=== PATIENT | female | born 1995 | race Two or more races ===

== ENCOUNTER 2016-10-21 11:25 | Inpatient (IN) | payer OTHER ==
[~2016-10-21] VITALS: Ht 160 cm; Wt 89.8 kg
[2016-10-21] MEDS ORDERED: CLINTAB7 (12:17)
[2016-10-21 12:25] LABS: BASOPHIL % 0.2 % (0.0-2.0); EOSINOPHIL # 0.1 TH/MM3 (0-0.4); EOSINOPHIL % 0.7 % (0.0-4.0); HEMO FLAGS DIFF FINAL; LYMPH % 25.2 % (9.0-44.0); LYMPHOCYTE # 2.7 TH/MM3 (1.0-4.8); MEAN CELL VOLUME 83.7 FL (80.0-100.0); MEAN CORPUSCULAR HEMOGLOBIN 27.5 PG (27.0-34.0); MEAN CORPUSCULAR HGB CONC 32.8 % (32.0-36.0); MONO % 7.5 % (0.0-8.0); NEUT % 66.4 % (16.0-70.0); PLATELET COUNT 236 TH/MM3 (150-450); RED BLOOD COUNT 4.42 MIL/MM3 (4.00-5.30); RED CELL DISTRIBUTION WIDTH 15.5 % (11.6-17.2); WHITE BLOOD COUNT 10.5 TH/MM3 (4.0-11.0)
[2016-10-21 12:35] LABS: BLOOD, URINE NEG (NEG); GLUCOSE,URINE NEG (NEG); KETONE, URINE NEG (NEG); MUCUS URINE FEW /lpf (OCC); NITRITE,URINE NEG (NEG); SQUAMOUS EPITHELIAL CELL URINE 5 /hpf (0-5); URINE COLOR YELLOW (YELLW/STRAW)
[2016-10-21 12:38] LABS: COMMENT (UR) CULT NOT INDICATED; CULTURE IF INDICATED CULT NOT INDICATED
[2016-10-21] MEDS ORDERED: SODIUM CHLORIDE 5 ML FLUSH PRN IVF (12:45)
[2016-10-21] MEDS ORDERED: MINERAL OIL 10 ML VIAL TOP PRN (12:45)
[2016-10-21] MEDS ORDERED: MISOPROSTOL 25 MCG SUPP VAGINAL ONE ×2 (12:45→17:30)
[2016-10-21] MEDS ORDERED: ONDANSETRON HCL 4 MG/2 ML VIAL IV PRN (12:45)
[2016-10-21] MEDS ORDERED: LIDOCAINE HCL 1% 50 ML VIAL I-DERMAL PRN (12:45)
[2016-10-21] MEDS ORDERED: CITRIC ACID-SODIUM CITRATE LIQ 30 ML UDC PO SCH (12:45)
[2016-10-21] MEDS ORDERED: NS 1000 ML IV PRN (12:45)
[2016-10-21] MEDS ORDERED: LACTATED RINGER'S 1000 ML INJ 1,000 ML IV SCH ×2 (12:45→22:00)
[2016-10-21] MEDS ORDERED: LIDOCAINE HCL 1% 50 ML VIAL INFIL PRN (12:45)
[2016-10-21] MEDS ORDERED: NS 500 ML BOLUS IV PRN (12:45)
[2016-10-21] MEDS ORDERED: OXYTOCIN 30 UNITS 500ML PREMIX IV ONE (12:45)
[2016-10-21] MEDS ORDERED: LACTATED RINGER'S 1000 ML BOLUS IV PRN (12:45)
[2016-10-21] MEDS: LACTATED RINGER'S 1000 ML IV SCH (12:52)
--- NOTE | 2016-10-21 14:19 | MH ---
cc: ANNE TALAMANTES MD DATE OF ADMISSION: 10/21/2016 HISTORY OF PRESENT ILLNESS She is a 21-year-old, 1, para 0, intrauterine at 41 and 1/7 weeks with oligohydramnios. care has been with [facility], uncomplicated. Group B strep is negative. OBSTETRICAL HISTORY She is primigravid. GYNECOLOGIC HISTORY Her Pap smear was normal in February of 2016. PAST MEDICAL AND SURGICAL HISTORY She denies. She denies any toxic habits. MEDICATIONS She takes vitamins. ALLERGIES No known drug allergies. PHYSICAL EXAMINATION VITAL SIGNS: Her vital signs are stable. She is afebrile. Blood pressure is 110/72. She is 198 pounds. HEAD, HEART, CHEST, LUNGS: Exams are within normal limits. ABDOMEN: Abdomen is soft, nontender, gravid. heart rate was 149 and KELLEY was 4 cm. ASSESSMENT/PLAN She is a 21-year-old, 1, para 0, intrauterine at 41 and 1/7 weeks with oligohydramnios. She has been counseled as to the risks, benefits, alternatives of Cytotec induction. All of her questions have been answered and informed consents have been signed. MD JOSE Fleming/TLL /1:59 PM /2:11 PM
[2016-10-21 17:27] VITALS: BP 133/70; PULSE 73; RESP 18; TEMP 98.6
[2016-10-21 19:14] VITALS: BP 126/74; PULSE 71; RESP 18; TEMP 98
[2016-10-21] MEDS: SODIUM CHLORIDE 5 ML FLUSH BID IVF SCH (21:00)
[2016-10-21 21:46] VITALS: BP 114/69; PULSE 73
[2016-10-21 22:00] VITALS: RESP 18; TEMP 98.2
[2016-10-21] MEDS ORDERED: DINOPROSTONE 10 MG INSERT-LEAVE FOR 12 HOURS VAGINAL ONE (22:00)
[2016-10-21] MEDS ORDERED: NS 1000 ML XX PRN (22:00)
[2016-10-21 23:54] VITALS: BP 121/72; PULSE 67
[2016-10-22] VITALS (17 sets, daily range): BP systolic 114–140; BP diastolic 63–106; PULSE 64–95; RESP 16–18; TEMP 97.6–98.6; O2SAT 97–98
--- NOTE | 2016-10-22 08:19 | PD.LABORPN ---
Subjective Subjective feeling pressure and contractions but mild, 1/10 Objective Objective Pelvic Exam: Cervix: [posterior] Dilatation: [2] Effacement: [50] Station: [-3] Presentation: [vtx] Membranes: [intact] Uterine Contractions: [not picking up well on monitor] FHT's: Category: [I] Assessment/Plan Problem List: (1) Post term at 41 weeks gestation Assessment and Plan 21 yo G1 at 41w2d admit for post term IOL, oligo 1) IOL: s/p cytotec x 2 yesterday and cervidil overnight; minimal to no cervical change; start pitocin, d/w pt suspect CPD based on high station, possibility of ; pt aware and amenable 2) GBS neg 3) status: vtx, male, Cat I tracing Niharika Beltran MD Oct 22, 2016 08:19
[2016-10-22] MEDS ORDERED: OXYTOCIN 30 UNITS-500ML PREMIX 500 ML IV SCH (08:30)
[2016-10-22] MEDS: SODIUM CHLORIDE 5 ML FLUSH BID IVF SCH (09:00)
[2016-10-22] MEDS ORDERED: OXYTOCIN 10 UNIT/ML AMP ONE (11:21)
[2016-10-22] MEDS ORDERED: ceFAZolin INJ 1,000 MG VIAL ONE (11:33)
[2016-10-22] MEDS: LACTATED RINGER'S 1000 ML IV SCH (11:38)
[2016-10-22] MEDS ORDERED: LACTATED RINGER'S 1000 ML INJ 1,000 ML IV ONE (11:39)
--- NOTE | 2016-10-22 11:39 | HHI.PR ---
[employer] Note Note Update: called by L&D nurse, report of Cat II tracing with pitocin augmentation, intolerance of labor; pitocin stopped, no cervical change, d/w pt and FOB intolerance of labor, proceed with . Niharika Beltran MD Oct 22, 2016 11:39
[2016-10-22] MEDS ORDERED: PERC5TAB12 PO (11:41)
[2016-10-22] MEDS ORDERED: IBUP-232 PO (11:41)
[2016-10-22] MEDS ORDERED: PERI8.6T PO (11:41)
[2016-10-22] MEDS ORDERED: LACTATED RINGER'S 1000 ML INJ 1,000 ML IV SCH ×2 (12:09→17:42)
[2016-10-22] MEDS ORDERED: KETOROLAC TROMETHAMINE 60 MG/2 ML (IM) VIAL IM PRN (12:45)
[2016-10-22] MEDS ORDERED: ONDANSETRON HCL 4 MG/2 ML VIAL IV PUSH PRN (12:45)
[2016-10-22] MEDS ORDERED: SIMETHICONE 80 MG CHEWABLE TAB PO PRN (12:45)
[2016-10-22] MEDS ORDERED: SODIUM CHLORIDE 0.9% FLUSH 5 ML FLUSH IV PRN (12:45)
[2016-10-22] MEDS ORDERED: ACETAMINOPHEN 325 MG TAB PO PRN (12:45)
[2016-10-22] MEDS: SODIUM CHLORIDE 0.9% FLUSH 5 ML FLUSH IV SCH ×2 (12:45→20:00)
[2016-10-22] MEDS ORDERED: ACETAMINOPHEN 1000 MG/100 ML VIAL IV ONE ×2 (12:45→13:38)
[2016-10-22] MEDS ORDERED: ZOLPIDEM TARTRATE 5 MG TAB PO PRN (12:45)
[2016-10-22] MEDS ORDERED: ceFAZolin 2 GM PREMIX 50 ML IV SCH (12:45)
[2016-10-22] MEDS ORDERED: OXYTOCIN 30 UNITS-500ML PREMIX 500 ML IV ONE (12:45)
--- NOTE | 2016-10-22 12:46 | PD.OB.DELI ---
Procedure Note Section Procedure Pre Op Diagnosis: (1) Post term at 41 weeks gestation (2) intolerance to labor, delivered, current hospitalization Post Op Diagnosis: (1) S/P primary low transverse (2) Post term at 41 weeks gestation (3) intolerance to labor, delivered, current hospitalization Performed by Niharika Beltran Procedure: Primary Low Transverse Sec Indication for delivery: Nonreassuring heart tracing ( intolerance of labor, NRFHTs with pitocin) Informed consent obtained: For anesthesia, For procedure Confirmed correct: Patient, Procedure, Site, Time-out taken Anesthesia: Spinal Medication prior to procedure: As documented in eMAR Monitoring during procedure: Blood pressure monitoring, roof assembler, Pulse oximetry Urinary catheter: Inserted using sterile technique, To dependent drainage, ml urine output (200) Sterile preparation: Duraprep, In usual fashion, With drapes to expose affected area Position: Supine with wedge to right side Operative Features Skin Incision: Pfannenstiel Uterine Incision: Low transverse w/knife / scissors Membranes Ruptured: Artificially, Amount of liquid (scant), Appearance of fluid (thick meconium) Presentation: Vertex Delivery of infant: Umbilical cord (tight nuchal x 1, reduced at delivery of head) : Male One Minute : 7 Ten Minute : 9 Weight: 7#1oz Status of : Viable, Nursery present Placenta delivered: Intact Medications: Antibiotics (preop Ancef 2g IV) Estimated blood loss: 500 mL Procedure tolerated: Well Maternal Condition: Stable Condition: Stable (nursery status) Procedure in detail see dictated op note for full details Niharika Beltran MD Oct 22, 2016 12:46
[2016-10-22] MEDS ORDERED: ONDANSETRON HCL 4 MG/2 ML VIAL ONE (12:48)
[2016-10-22] MEDS ORDERED: MORPHINE SULFATE PF 5 MG/10 ML VIAL ONE (12:48)
--- NOTE | 2016-10-22 12:52 | HHI.DCPOC ---
Discharge Care Plan Diagnosis: (1) S/P primary low transverse Your Health Problems Are: delivery Report Symptoms to Your Doctor -Temperate above 100.5 degrees -Redness, of incision or excessive or foul smelling drainage -Unusual pain or calf pain -Increased vaginal bleeding -Painful or difficulty urinating -Feelings of extreme sadness or anxiety after 2 weeks Goals to Promote Your Health * To prevent worsening of your condition and complications * To maintain your health at the optimal level Directions to Meet Your Goals Take your medications as prescribed Follow your dietary instruction Follow activity as directed Ensure plenty of rest for recovery Drink fluids for hydration Keep your appointments as scheduled Take your immunizations and boosters as scheduled If your symptoms worsen call your PCP, if no PCP go to Urgent Care Center or Emergency Room Smoking is Dangerous to Your Health. Avoid second hand smoke Call the 24-hour crisis hotline for domestic abuse at Niharika Beltran MD Oct 22, 2016 12:52
--- NOTE | 2016-10-22 13:31 | MP ---
cc: CODY MARTINEZ M.D. DATE OF SURGERY: 10/22/2016 DATE OF : 1995 PREOPERATIVE DIAGNOSIS 1. Intrauterine arthur at 41 weeks and 2 days. 2. Oligohydramnios. 3. intolerance of labor, non-reassuring heart tones. POSTOPERATIVE DIAGNOSIS 1. Intrauterine arthur at 41 weeks and 2 days. 2. Oligohydramnios. 3. intolerance of labor, non-reassuring heart tones. 4. Post-op day #0. INDICATIONS Vesna Hernandez is a 21-year-old, 2, now para 1-0-1-1 who was seen and evaluated throughout her with [facility] with an uncomplicated course. At 41 weeks and 1 day she had standard testing and was found to have oligohydramnios with KELLEY of 4. The patient was sent for induction to labor and delivery. She had two doses of Cytotec followed by Cervidil. Still the patient's cervix remained 1, thick and high posterior. Pitocin was started in general manager oracle data cloud hours on October 22 with heart tones quickly changing from category I to category II, not responding to interventions. intolerance of labor diagnosed and decision for . PROCEDURE PERFORMED Primary low transverse delivery. SURGEON Cody Martinez MD ANESTHESIA Spinal. ESTIMATED BLOOD LOSS 500 mL. URINE OUTPUT 200 mL of clear urine draining in the Ford bag at the end of the procedure. IV FLUID REPLACEMENT One liter. PROPHYLAXIS Ancef 2 grams IV was given preoperatively. SCDs were on and functioning throughout the entire case. INTRAOPERATIVE FINDINGS A vigorous and viable male , weighing 7 pounds 1 ounce. A tight nuchal cord was reduced after delivery of the head. Thick meconium staining to the amniotic fluid. Apgars of 7 and 9. Placenta was intact, meconium-stained. Uterus was not exteriorized so adnexa were not evaluated. SPECIMEN None. PROCEDURE IN DETAIL After reviewing the informed consent, the patient was taken to the operating suite where a timeout was performed to identify the patient, planned procedure and any known allergies to drugs or drug products. The patient was then placed sitting up on the operating table and spinal anesthesia was administered without difficulty and found to be adequate. The patient was then laid supine with a bump under her right side and the abdomen and perineum were prepped and draped in normal sterile fashion. A Ford catheter was placed using sterile technique. Attention was turned abdominally where a Pfannenstiel-type skin incision was made with a scalpel and carried down to the underlying layer of fascia with the Bovie. The fascia was incised in the midline. The incision was extended laterally with sharp dissection using Menendez scissors. The superior aspect of the fascial incision was elevated with Sam clamps. The rectus muscles were dissected off sharply with Menendez scissors. That process was repeated inferiorly. The rectus muscle was then in the midline. The peritoneum was identified, elevated with hemostats and entered sharply with Metzenbaum scissors. The peritoneal opening was then extended superiorly and inferiorly with good visualization of intra-abdominal contents. A bladder blade was placed. A bladder flap was not made. A low transverse incision was made on the uterus with a scalpel and extended sharply with bandage scissors. Immediately upon amniotomy thick particulate meconium was noted. The infant's head was grasped and flexed out of the incision. A tight nuchal cord was encountered, this was reduced. The was then delivered using standard maneuvers. The cord was doubly clamped and cut and the infant was immediately handed to the awaiting nursery and respiratory staff. Cord blood sample was taken. Placenta was delivered spontaneously using gentle cord traction and fundal massage. The uterus was not exteriorized. The uterus was cleared of all clots and debris with sterile moist lap sponges. The hysterotomy was repaired in a double layer, first in a running layer and then in an imbricating layer with #1 chromic. The pelvis was then irrigated and excellent hemostasis was noted. The peritoneum was then closed in a running fashion with 2-0 chromic. The fascia was closed in a running layer with #1 Vicryl. The subcutaneous tissue was irrigated copiously with warm sterile saline and hemostasis was ensured with the Bovie. The skin was then closed in a subcuticular fashion with 3-0 Monocryl with excellent hemostasis noted. A standard dressing was placed. The procedure concluded at this point. The patient tolerated the procedure well without complication. DISPOSITION The patient's estimated length of stay is 2-3 postoperative days. The infant is nursery status. MD RIZWANA Harris /12:49 PM /1:13 PM [id number]
[2016-10-22] MEDS ORDERED: EPIDURAL-DIPHENHYDRAMINE HCL 50 MG/ML VIAL IV PUSH PRN (15:15)
[2016-10-22] MEDS ORDERED: EPIDURAL-DIPHENHYDRAMINE HCL 50 MG CAP PO PRN (15:15)
[2016-10-22] MEDS ORDERED: EPIDURAL-DO NOT ADMINISTER ANTICOAGULANTS XX PRN (15:15)
[2016-10-22] MEDS ORDERED: EPIDURAL-NALOXONE HCL 0.4 MG/ML AMP IV PRN (15:15)
[2016-10-22] MEDS ORDERED: EPIDURAL-NO SYSTEMIC NARCOTICS XX PRN (15:15)
[2016-10-22] MEDS: DOCUSATE SODIUM 50 MG/SENNA 8.6 MG TAB PO SCH (22:14)
[2016-10-22] MEDS ORDERED: OXYTOCIN 30 UNITS-500ML PREMIX 500 ML IV PRN (22:45)
[2016-10-23] MEDS: IBUPROFEN 600 MG TAB PO PRN ×4 (00:49→21:32)
[2016-10-23 04:34] LABS: AUTOMATED NEUTROPHIL # 7.3 TH/MM3 (1.8-7.7); BASOPHIL % 0.2 % (0.0-2.0); EOSINOPHIL # 0.1 TH/MM3 (0-0.4); HEMO FLAGS DIFF FINAL; LYMPHOCYTE # 2.4 TH/MM3 (1.0-4.8); MEAN CELL VOLUME 82.5 FL (80.0-100.0); MEAN CORPUSCULAR HEMOGLOBIN 27.2 PG (27.0-34.0); MONO % 6.2 % (0.0-8.0); NEUT % 69.6 % (16.0-70.0); PLATELET COUNT 194 TH/MM3 (150-450); RED BLOOD COUNT 3.87 MIL/MM3 (4.00-5.30); RED CELL DISTRIBUTION WIDTH 15.7 % (11.6-17.2); WHITE BLOOD COUNT 10.4 TH/MM3 (4.0-11.0)
[2016-10-23 07:28] VITALS: BP 112/60; PULSE 78; RESP 16; TEMP 98.1
[2016-10-23] MEDS: DOCUSATE SODIUM 50 MG/SENNA 8.6 MG TAB PO SCH ×2 (08:12→21:32)
[2016-10-23] MEDS: SODIUM CHLORIDE 0.9% FLUSH 5 ML FLUSH IV SCH (09:00)
--- NOTE | 2016-10-23 10:49 | HHI.OB ---
Subjective Post Operative Day: 1 Remarks POD#1; Doing well, transitioning ok,needs consultation Objective Vitals/I&O Vital Signs Date Time Temp Pulse Resp B/P Pulse Ox O2 Delivery O2 Flow Rate FiO2 10/23/16 07:28 98.1 10/23/16 07:28 78 16 112/60 10/22/16 23:00 98.0 82 18 122/69 10/22/16 23:00 95 114/66 10/22/16 14:28 98.6 16 98 10/22/16 14:28 68 128/78 10/22/16 13:06 64 18 120/67 98 10/22/16 12:51 118/63 10/22/16 12:51 98.0 65 18 97 10/22/16 11:36 75 140/97 10/22/16 11:30 70 129/106 Result Diagram: 10/23/16 0420 Objective Remarks GENERAL: Well-nourished, well-developed patient. CARDIOVASCULAR: Regular rate and rhythm without murmurs, gallops, or rubs. RESPIRATORY: Breath sounds equal bilaterally. No accessory muscle use. ABDOMEN/GI: Abdomen soft, non-tender, bowel sounds present. Incision: Clean, dry and intact. Fundus: Firm, non-tender at umbilicus. GENITOURINARY: Light to moderate bleeding. EXTREMITIES: No cyanosis or edema, non-tender, without signs of DVT. Medications and IVs Current Medications Medications (Trade) Dose Ordered Sig/Chepe Route Start Time Stop Time Status Last Admin (Lr 1000 ml Inj) 1,000 ml @ 100 mls/hr Q10H IV 10/22/16 17:42 10/23/16 13:41 10/22/16 20:15 (NS Flush) 2 ml BID IV 10/22/16 12:45 10/22/16 20:00 (NS Flush) 2 ml UNSCH PRN IV 10/22/16 12:45 (Mylicon Chew) 80 mg QID PRN PO 10/22/16 12:45 (Tylenol) 650 mg Q6H PRN PO 10/22/16 12:45 (Motrin) 600 mg Q6H PRN PO 10/22/16 12:45 10/23/16 08:12 (Toradol Inj) 30 mg Q6H PRN IM 10/22/16 12:45 10/23/16 12:44 (Percocet 5-325 Mg) 1 tab Q4H PRN PO 10/22/16 12:45 (Percocet 5-325 Mg) 2 tab Q4H PRN PO 10/22/16 12:45 (Maki-Colace) 2 tab Q12H PO 10/22/16 21:00 10/23/16 08:12 (Ambien) 5 mg HS PRN PO 10/22/16 12:45 (M-M-R Ii Inj) 0.5 ml ONCE ONCE SQ 10/23/16 16:00 10/23/16 16:01 (Boostrix Inj) 0.5 ml ONCE ONCE IM 10/23/16 16:00 10/23/16 16:01 (Zofran Inj) 4 mg Q6H PRN IV PUSH 10/22/16 12:45 10/22/16 20:12 Miscellaneous Information NO SYSTEMIC NARCOTICS TO BE GIVEN FO... UNSCH PRN XX 10/22/16 15:15 10/23/16 15:14 (Narcan Inj) 0.4 mg UNSCH PRN IV 10/22/16 15:15 10/23/16 15:14 (Benadryl Inj) 25 mg Q6H PRN IV PUSH 10/22/16 15:15 10/23/16 15:14 (Benadryl) 50 mg Q6H PRN PO 10/22/16 15:15 10/23/16 15:14 Miscellaneous Information ALL NURSING DEPARTMENTS UNSCH PRN XX 10/22/16 15:15 10/23/16 15:14 Assessment/Plan Problem List: (1) Post term at 41 weeks gestation Assessment and Plan POD#1, stable, male in NICU Discharge Planning does not meet criteria Moise Villatoro MD Oct 23, 2016 10:49
[2016-10-23 15:01] VITALS: BP 118/68; PULSE 87; RESP 18; TEMP 98.5
[2016-10-23] MEDS ORDERED: MEASLES, MUMPS, RUBELLA VACCINE 0.5 ML VIAL SQ ONE (16:00)
[2016-10-23] MEDS ORDERED: DIPHTH/TETANUS/ACEL PERTUSSIS (BOOSTER) 0.5 ML VIAL/PFS IM ONE (16:00)
[2016-10-23 21:25] VITALS: BP 109/69; PULSE 76; RESP 18
[2016-10-24] MEDS: IBUPROFEN 600 MG TAB PO PRN ×4 (03:46→23:48)
[2016-10-24] MEDS: SODIUM CHLORIDE 0.9% FLUSH 5 ML FLUSH IV SCH (07:27)
--- NOTE | 2016-10-24 08:10 | HHI.OB ---
Subjective Post Operative Day: 2 Remarks doing well, +BM Objective Vitals/I&O Vital Signs Date Time Temp Pulse Resp B/P Pulse Ox O2 Delivery O2 Flow Rate FiO2 10/23/16 22:30 18 10/23/16 21:25 76 18 109/69 10/23/16 15:01 98.5 87 18 118/68 Result Diagram: 10/23/16 0420 Objective Remarks GENERAL: Well-nourished, well-developed patient. CARDIOVASCULAR: Regular rate and rhythm without murmurs, gallops, or rubs. RESPIRATORY: Breath sounds equal bilaterally. No accessory muscle use. ABDOMEN/GI: Abdomen soft, non-tender, bowel sounds present. Incision: Clean, dry and intact. Fundus: Firm, non-tender at umbilicus. GENITOURINARY: Light to moderate bleeding. EXTREMITIES: No cyanosis or edema, non-tender, without signs of DVT. Medications and IVs Current Medications Medications (Trade) Dose Ordered Sig/Chepe Route Start Time Stop Time Status Last Admin (NS Flush) 2 ml BID IV 10/22/16 12:45 10/22/16 20:00 (NS Flush) 2 ml UNSCH PRN IV 10/22/16 12:45 (Mylicon Chew) 80 mg QID PRN PO 10/22/16 12:45 (Tylenol) 650 mg Q6H PRN PO 10/22/16 12:45 (Motrin) 600 mg Q6H PRN PO 10/22/16 12:45 10/24/16 03:46 (Percocet 5-325 Mg) 1 tab Q4H PRN PO 10/22/16 12:45 (Percocet 5-325 Mg) 2 tab Q4H PRN PO 10/22/16 12:45 (Maki-Colace) 2 tab Q12H PO 10/22/16 21:00 10/23/16 21:32 (Ambien) 5 mg HS PRN PO 10/22/16 12:45 (Zofran Inj) 4 mg Q6H PRN IV PUSH 10/22/16 12:45 10/22/16 20:12 Assessment/Plan Problem List: (1) Post term at 41 weeks gestation Assessment and Plan POD#2, stable, male in NICU Discharge Planning does not meet criteria Attending Attestation pt seen by Arleth Rossi MD Oct 24, 2016 08:10
[2016-10-24] MEDS: DOCUSATE SODIUM 50 MG/SENNA 8.6 MG TAB PO SCH ×2 (09:00→23:49)
[2016-10-24 09:55] VITALS: BP 120/73; PULSE 75; RESP 16
[2016-10-24 10:00] VITALS: TEMP 98.6
[2016-10-24] MEDS: oxyCODONE/ACETAMINOPHEN 5 MG/325 MG TAB PO PRN ×2 (18:36→23:49)
[2016-10-25] MEDS: oxyCODONE/ACETAMINOPHEN 5 MG/325 MG TAB PO PRN ×2 (07:59→13:59)
[2016-10-25] MEDS: IBUPROFEN 600 MG TAB PO PRN ×2 (07:59→13:59)
[2016-10-25 08:00] VITALS: BP 118/74; PULSE 72; RESP 16; TEMP 98.6
[2016-10-25] MEDS: DOCUSATE SODIUM 50 MG/SENNA 8.6 MG TAB PO SCH (08:00)
--- NOTE | 2016-10-25 11:41 | HHI.OB ---
Subjective Post Operative Day: 3 Remarks POD/PPD#3; Stable .doing well Objective Vitals/I&O Vital Signs Date Time Temp Pulse Resp B/P Pulse Ox O2 Delivery O2 Flow Rate FiO2 10/25/16 08:00 98.6 72 16 118/74 Result Diagram: 10/23/16 0420 Objective Remarks GENERAL: Well-nourished, well-developed patient. CARDIOVASCULAR: Regular rate and rhythm without murmurs, gallops, or rubs. RESPIRATORY: Breath sounds equal bilaterally. No accessory muscle use. ABDOMEN/GI: Abdomen soft, non-tender, bowel sounds present. Incision: Clean, dry and intact. Fundus: Firm, non-tender at umbilicus. GENITOURINARY: Light to moderate bleeding. EXTREMITIES: No cyanosis or edema, non-tender, without signs of DVT. Medications and IVs Current Medications Medications (Trade) Dose Ordered Sig/Chepe Route Start Time Stop Time Status Last Admin (NS Flush) 2 ml BID IV 10/22/16 12:45 10/22/16 20:00 (NS Flush) 2 ml UNSCH PRN IV 10/22/16 12:45 (Mylicon Chew) 80 mg QID PRN PO 10/22/16 12:45 (Tylenol) 650 mg Q6H PRN PO 10/22/16 12:45 (Motrin) 600 mg Q6H PRN PO 10/22/16 12:45 10/25/16 07:59 (Percocet 5-325 Mg) 1 tab Q4H PRN PO 10/22/16 12:45 10/24/16 23:49 (Percocet 5-325 Mg) 2 tab Q4H PRN PO 10/22/16 12:45 10/25/16 07:59 (Maki-Colace) 2 tab Q12H PO 10/22/16 21:00 10/25/16 08:00 (Ambien) 5 mg HS PRN PO 10/22/16 12:45 (Zofran Inj) 4 mg Q6H PRN IV PUSH 10/22/16 12:45 10/22/16 20:12 Assessment/Plan Problem List: (1) Post term at 41 weeks gestation Assessment and Plan POD#3; stable, male in NICU Plan for discharge today Discharge Planning Routine Attending Attestation Seen by Moise Sanchez MD 13, 2017 11:41
== END 2016-10-25 14:16 | disposition home or self-care (01) | DRG 766 ==
LOC: H2EA 11:25 → H1EA 10-22 14:24
PROVIDERS: ADMIT Obstetrics & Gynecology; ATTEND Obstetrics & Gynecology
PROC: 3E0P7GC Introduction of Other Therapeutic Substance into Female Reproductive, Via Natural or Artificial Opening (ICD-10-PCS; 2016-10-21)
PROC: 10D00Z1 Extraction of Products of Conception, Low, Open Approach (ICD-10-PCS; principal; 2016-10-22)
DX: O41.03X0 Oligohydramnios, third trimester, not applicable or unspecified (principal); O48.0 Post-term pregnancy; Z3A.41 41 weeks gestation of pregnancy; O76 Abnormality in fetal heart rate and rhythm complicating labor and delivery; O77.9 Labor and delivery complicated by fetal stress, unspecified; O69.1XX0 Labor and delivery complicated by cord around neck, with compression, not applicable or unspecified; O77.0 Labor and delivery complicated by meconium in amniotic fluid; Z37.0 Single live birth
CPT/HCPCS: 59025; 81001; 85025; 86900; 86901; 90715; J0131; J0690; J2274; J2405; J2590; J7120